=== PATIENT | female | born 1950 | race Caucasian/White ===

== ENCOUNTER → 2016-07-29 | Outpatient (CLI) | payer OTHER ==
[~2016-07-29] MED LIST: ALBU1AER9 INH; ATV/1 PO; CEPH500C PO; DOCU-94 PO; DXM/4 PO; GABA-113 PO; HYDR4TAB78 PO; IPRA1AER2 INH; IPRASOL4 INH; MORP15TA19 PO; MULTTAB58 PO; ONDA4TAB10 SL; OXGN; OXYC1CAP5 PO; PANT40TA PO; POLY335019 PO; TRAM-10 PO; VITA1CAP7 PO; VNTHFA/IN INH; ZOLP10TA6 PO
[2016-07-29 09:42] VITALS: BP 133/85; PULSE 93; TEMP 36.7; O2SAT 96
--- NOTE | 2016-07-29 13:30 | Radiation Oncology Follow-Up ---
Radiation Oncology Follow-Up Date of Visit Jul 29, 2016. 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 Nunez is a 65-year-old female who noted in the fall of this year increasing cough and bloody sputum with shortness of breath and right-sided chest pain. She saw her PCP who recommended she go to the emergency department to rule out a pulmonary embolus. In the emergency department a CT scan was performed which did not show any pulmonary embolus but did show a large right hilar mass measuring approximate 6 cm. Also noted was a right breast mass measuring 1.5 cm. The patient has a long smoking history of 1-1/2 packs per day for over 40 years. She was found to be hypoxic and was placed on oxygen. She was admitted and seen in referral by Dr. Markham. He recommended additional staging workup including a bronchoscopy for tissue diagnosis and PET/CT scan. On 04/02/2016 patient underwent a bronchoscopy with transbronchial needle aspiration and intrabronchial biopsy. The secondary soheila show diffuse erythema with widening. In the right upper lobe there was diffuse erythema and the anterior subsegment was partially obstructed down to 5 mm from the takeoff. The right mainstem bronchus was erythematous with hyperemia and 90% collapse with coughing. The right upper lobe biopsy revealed a small cell carcinoma. Case: [id number]. 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 Case: [id number]. Patient was seen by Dr. Rodo Argueta for discussion of the role of chemotherapy. He ordered an MRI of the brain performed on 04/22/2016. This showed no acute intracranial findings and no evidence of acute or subacute infarction or intracranial metastasis. In discussion of treatment options the patient stated that she did not wish to have any systemic chemotherapy. She also noted recent onset of right hip pain. Pelvic imaging taken on May 26 showed no fracture or dislocation of the pelvis hips or right femur. Lumbar spine imaging showed no acute fracture. There is moderate multilevel degenerative disc disease and facet arthrosis. There is moderate levoscoliosis of the lumbar spine but no evidence of metastatic disease. Right lower extremity venous Doppler showed no evidence of deep vein thrombosis. With the onset of right hip pain patient also noted increasing dyspnea. She was subsequently readmitted and underwent a CT of the chest to rule out pulmonary embolus. This again showed a large right hilar mass that had increased in size. It now measures 8.6 x 7.8 cm. The tumor invaded into the right side of the mediastinum and into the superior vena cava. There was near- complete occlusion of the SVC without any trace amount of contrast extending into the right atrium. 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 The majority of the venous drainage within the upper chest is through the distended azygos vein. The large right hilar mass resultant mass effect within the right pulmonary arteries. A questionable thrombus within the right upper lobe segmental pulmonary artery is likely due to artifact. No other filling defects are noted. There is mildly enlarged left hilar lymph node has increased in size. A 1.8 cm right breast mass also increased in size multiple subcentimeter bilateral metastatic nodules are again noted. A CT scan of the right hip and lower extremity was performed because of increasing pain on weightbearing. There were no fractures or dislocations identified. There was mild right-sided hydronephrosis and a 5.6 cm right adnexal cyst likely ovarian. There is distention of the bladder. Urinary contrast was noted within the vagina. There was no evidence of metastatic disease. I met with the patient to discuss palliative treatment options. The patient again reiterated that she did not wish to have any systemic chemotherapy. She was however willing to proceed with palliative radiation. I spoke with her about the use of radiation to the chest mass in the hopes of decreasing its volume and improving her respiratory symptoms. The patient understands that this is a palliative/not curative approach which she is willing to accept. I reviewed with her the potential risks and side effects of a palliative course of radiation to the chest. A consent form was presented to the patient. The risks were read to the patient and were initialed and the consent form was read signed and witnessed. With the patient's consent we will proceed with a CT simulation later today and begin a course of palliative radiation as soon as possible. She underwent palliative radiation therapy this was completed 06/26/2016. She received 5000 cGy Interim History She's been stable over the past month. Her respiratory status is unchanged. Her oxygen level continues to 4 L/m. She had been on dexamethasone 4 mg 4 times a day. Following hospitalization this was stopped. She become quite ill and weak following the quick discontinuation of steroids. She was seen by her PCP who promptly restarted the dexamethasone. She did feel improved with reinitiation of the medication. This has now been tapered down to 1 pill twice a day. She requested that the chest x-ray be reviewed from July 05. Outcome showed the hilar mass was unchanged. She also had a CT of the brain at that time and did not show metastatic disease. She had previously declined chemotherapy. We had previously discussed hospice care. She has seen her primary care physician and has also discussed hospice care with him. She feels that she may have some increased swelling of her neck and face and wanted to have her neck rechecked today. We had followed this at her on treatment visits with measurements throughout the treatment time. Which had showed an excellent response to treatment. Allergies Coded Allergies: Ciprofloxacin (Verified Allergy, Mild, RASH, 07/05/16) Latex (Verified Allergy, Unknown, ., 07/05/16) Uncoded Allergies: BLEACH (Allergy, Unknown, RASH, 04/02/16) METALS (Allergy, Unknown, RASH, 04/02/16) Home Medications Scheduled Dexamethasone (Decadron), 4 MG PO BID Docusate Sodium (Colace), 100 MG PO BID Gabapentin (Neurontin), 300 MG PO TIDM Morphine Cont Rel (Ms Contin), 15 MG PO Q12 Multiple Vitamin (Multivitamin), 1 TAB PO DAILY Ondasetron Odt (Zofran Odt), 4 MG SL Q6H Oxygen (Oxygen), 4 LITERS NA CONTINOUS Pantoprazole (Protonix), 40 MG PO DAILY Polyethylene Glycol 3350 (Miralax), 17 GM PO DAILY Vitamin E (E200), 2 CAP PO DAILY Scheduled PRN Albuterol (Proair Hfa), 2 PUFFS INH Q4 PRN for SOB/Wheezing Ipratropium-Albuterol (Duoneb), 1 TREATMENT INH Q6H PRN for Shortness of Breath Ipratropium-Albuterol (Combivent Respimat), 1 PUFFS INH QID PRN for Shortness of Breath Lorazepam (Ativan), 1 MG PO Q4 PRN for Anxiety Oxycodone Hcl (Oxycodone Hcl), 5 MG PO Q4 PRN for Pain Zolpidem Tartrate (Zolpidem Tartrate), 10 MG PO HS PRN for Sleep Review of Systems Gastrointestinal: Symptoms: WNL GI Comments: on myrlax daily Oral: Symptoms: Scant Saliva/Dry Mouth Respiratory: Symptoms: Moist Cough, SOB With Exertion Respiratory Comments: O 2 at 4.0 liters N C Other Respiratory: " does not use her nebulizers as directed " Urinary: Symptoms: Frausto Catheter Comments: "to have the frausto catheter changed today " Skin: Other Skin Symptoms: "dry " Physical Exam Vital Signs Date Time Temp Pulse Resp B/P Pulse Ox O2 Delivery O2 Flow Rate FiO2 07/29/16 09:42 36.7 93 20 133/85 96 Pain: Side: Bilateral Patient Pain Scale: 0 - 10 Initial Pain Intensity: 0.0 Fatigue: None General Appearance: no apparent distress, + pertinent finding (mild de souza face appearance.) Eyes: normal inspection, EOMI ENT: normal ENT inspection, hearing grossly normal, + pertinent finding (she has weight at she [place] on her tongue, posterior pharynx and buccal mucosa.) Neck: supple, no adenopathy, + pertinent finding (the neck circumference measured 14-1/2 inches.) Respiratory/Chest: lungs clear Cardiovascular: regular rate, rhythm, no gallop, no murmur Extremities: no pedal edema Neurologic/Psychiatric: no motor/sensory deficits, alert, normal mood/affect Skin: warm/dry Lymphatic: no adenopathy Laboratory Studies Test 05/26/16 18:35 05/26/16 18:58 05/26/16 22:34 05/26/16 23:20 Prothrombin Time 11.4 SECONDS (9.0-12.0) Prothrombin Time INR 1.1 (0.9-1.1) PTT 28.7 SECONDS (21.0-31.0) Partial Thromboplastin Ratio 1.1 Direct Bilirubin 0.1 mg/dl (0-0.2) Total Creatine Kinase 50 U/L (26-192) Creatine Kinase MB 1.6 ng/ml (0.5-3.6) Creatine Kinase MB Ratio 3.2 (0-3.0) Troponin I < 0.015 ng/ml (0-0.045) Lipase 299 U/L (73-393) Venous Blood pH 7.40 (7.36-7.41) Venous Blood Partial Pressure CO2 48 mmHg (38.0-50.0) Venous Blood Partial Pressure O2 56 mmHg Venous Blood HCO3 29 mmol/L Venous Blood Oxygen Saturation 89.4 % Venous Blood Base Excess 3.0 mmol/L Urine Renal Epithelial Cells /lpf (0-5) Urine Crystals CALCIUM OXALATE (NONE Arterial Blood pH 7.30 (7.35-7.45) Arterial Blood Partial Pressure CO2 55 mmHg (35-46) Arterial Blood Partial Pressure O2 92 mm/Hg (80-95) Arterial Blood HCO3 27 mmol/L (19-24) Arterial Blood Oxygen Saturation 96.3 % (90-95) Arterial Blood Base Excess -0.5 mEq/L (-9-1.8) Arterial Blood Gas Delivery 4L Francesco Test POS (POS) Test 05/28/16 06:46 07/01/16 18:50 07/01/16 19:00 07/01/16 20:15 CA 125 Antigen 44 U/ML (<35) Immature Granulocyte % (Auto) 1.1 % White Blood Count 8.91 K/uL (4.8-10.8) Red Blood Count 4.28 M/uL (4.2-5.4) Hemoglobin 13.6 g/dL (12.0-16.0) Hematocrit 39.0 % (37-47) Mean Corpuscular Volume 91.1 fL (80-100) Mean Corpuscular Hemoglobin 31.8 pg (25-34) Mean Corpuscular Hemoglobin Concent 34.9 g/dl (32-36) Platelet Count 210 K/uL (130-400) Mean Platelet Volume 9.6 fL (7.4-10.4) Neutrophils (%) (Auto) 89.9 % Lymphocytes (%) (Auto) 3.0 % Monocytes (%) (Auto) 4.7 % Eosinophils (%) (Auto) 1.2 % Basophils (%) (Auto) 0.1 % Neutrophils # (Auto) 8.00 K/uL (1.4-6.5) Lymphocytes # (Auto) 0.27 K/uL (1.2-3.4) Monocytes # (Auto) 0.42 K/uL (0.11-0.59) Eosinophils # (Auto) 0.11 K/uL (0-0.5) Basophils # (Auto) 0.01 K/uL (0-0.2) Immature Granulocyte # (Auto) 0.10 K/uL (0.00-0.02) Prothrombin Time 10.7 SECONDS (9.0-12.0) Prothrombin Time INR 1.0 (0.9-1.1) Magnesium Level 1.8 mg/dl (1.8-2.4) Total Bilirubin 0.5 mg/dl (0.2-1) Direct Bilirubin 0.1 mg/dl (0-0.2) Aspartate Amino Transferase (AST) 20 U/L (15-37) Alanine Aminotransferase (ALT) 28 U/L (12-78) Alkaline Phosphatase 83 U/L (45-117) Total Creatine Kinase 37 U/L (26-192) Creatine Kinase MB 2.2 ng/ml (0.5-3.6) Creatine Kinase MB Ratio 5.9 (0-3.0) Total Protein 6.3 gm/dl (6.4-8.2) Albumin 2.6 gm/dl (3.4-5.0) POC Troponin I 0.000 ng/ml (0-0.045) Urine Color YELLOW Urine Appearance CLOUDY (CLEAR) Urine pH 7.5 (4.5-7.5) Urine Specific [place] 1.015 (1.000-1.030) Urine Protein 1+ (NEG) Urine Glucose (UA) NEG (NEG) Urine Ketones NEG (NEG) Urine Occult Blood 2+ (NEG) Urine Nitrite NEG (NEG) Urine Bilirubin NEG (NEG) Urine Urobilinogen NEG (NEG) Urine Leukocyte Esterase MODERATE (NEG) Urine WBC (Auto) >30 /hpf (0-5) Urine RBC (Auto) 10-30 /hpf (0-4) Urine Hyaline Casts (Auto) 1-5 /lpf (0-5) Urine Epithelial Cells (Auto) 5-10 /lpf (0-5) Urine Bacteria (Auto) NEG (NEG) Urine Yeast (Auto) PRESENT (NONE PRSENT) Test 07/01/16 23:33 07/02/16 03:55 07/02/16 07:48 07/02/16 07:50 Osmolality 266 mOsm/kg (280-300) Magnesium Level 1.9 mg/dl (1.8-2.4) Urine Osmolality 480 mOms/kg (500-800) Urine Random Sodium 106 mEq/L Influenza Type A (RT-PCR) Neg for Influ A (NEG) Influenza Type B (RT-PCR) Neg for Influ B (NEG) Test 07/03/16 06:05 07/05/16 07:00 07/05/16 07:35 White Blood Count 7.72 K/uL (4.8-10.8) 8.05 K/uL (4.8-10.8) Red Blood Count 3.92 M/uL (4.2-5.4) 4.02 M/uL (4.2-5.4) Hemoglobin 11.9 g/dL (12.0-16.0) 12.7 g/dL (12.0-16.0) Hematocrit 36.2 % (37-47) 36.1 % (37-47) Mean Corpuscular Volume 92.3 fL (80-100) 89.8 fL (80-100) Mean Corpuscular Hemoglobin 30.4 pg (25-34) 31.6 pg (25-34) Mean Corpuscular Hemoglobin Concent 32.9 g/dl (32-36) 35.2 g/dl (32-36) RDW Standard Deviation 52.6 fL (36.4-46.3) 49.6 fL (36.4-46.3) RDW Coefficient of Variation 15.7 % (11.5-14.5) 15.1 % (11.5-14.5) Platelet Count 215 K/uL (130-400) 216 K/uL (130-400) Mean Platelet Volume 9.5 fL (7.4-10.4) 9.3 fL (7.4-10.4) Sodium Level 141 mmol/L (136-145) 132 mmol/L (136-145) Potassium Level 3.7 mmol/L (3.5-5.1) 3.7 mmol/L (3.5-5.1) Chloride Level 106 mmol/L (98-107) 94 mmol/L (98-107) Carbon Dioxide Level 27 mmol/L (21-32) 27 mmol/L (21-32) Anion Gap 8.0 mmol/L (3-11) 11.0 mmol/L (3-11) Blood Urea Nitrogen 10 mg/dl (7-18) 9 mg/dl (7-18) Creatinine 0.61 mg/dl (0.60-1.20) 0.45 mg/dl (0.60-1.20) Est Creatinine Clear Calc Drug Dose 83.7 ml/min 113.5 ml/min Estimated GFR () 108.7 120.2 Estimated GFR (Non- 93.8 103.7 BUN/Creatinine Ratio 16.4 (10-20) 20.4 (10-20) Random Glucose 109 mg/dl (70-99) 99 mg/dl (70-99) Calcium Level 8.3 mg/dl (8.5-10.1) 8.4 mg/dl (8.5-10.1) Neutrophils (%) (Auto) 91.6 % Lymphocytes (%) (Auto) 2.9 % Monocytes (%) (Auto) 4.0 % Eosinophils (%) (Auto) 0.9 % Basophils (%) (Auto) 0.1 % Neutrophils # (Auto) 7.38 K/uL (1.4-6.5) Lymphocytes # (Auto) 0.23 K/uL (1.2-3.4) Monocytes # (Auto) 0.32 K/uL (0.11-0.59) Eosinophils # (Auto) 0.07 K/uL (0-0.5) Basophils # (Auto) 0.01 K/uL (0-0.2) Immature Granulocyte % (Auto) 0.5 % Immature Granulocyte # (Auto) 0.04 K/uL (0.00-0.02) Total Bilirubin 0.6 mg/dl (0.2-1) Aspartate Amino Transferase (AST) 24 U/L (15-37) Alanine Aminotransferase (ALT) 24 U/L (12-78) Alkaline Phosphatase 86 U/L (45-117) Total Protein 6.1 gm/dl (6.4-8.2) Albumin 2.2 gm/dl (3.4-5.0) Globulin 3.9 gm/dl (2.5-4.0) Albumin/Globulin Ratio 0.6 (0.9-2) Urine Color YELLOW Urine Appearance CLEAR (CLEAR) Urine pH 7.0 (4.5-7.5) Urine Specific [place] 1.009 (1.000-1.030) Urine Protein NEG (NEG) Urine Glucose (UA) NEG (NEG) Urine Ketones NEG (NEG) Urine Occult Blood NEG (NEG) Urine Nitrite NEG (NEG) Urine Bilirubin NEG (NEG) Urine Urobilinogen NEG (NEG) Urine Leukocyte Esterase TRACE (NEG) Urine WBC (Auto) 1-5 /hpf (0-5) Urine RBC (Auto) 0-4 /hpf (0-4) Urine Hyaline Casts (Auto) 0 /lpf (0-5) Urine Epithelial Cells (Auto) 0-5 /lpf (0-5) Urine Bacteria (Auto) NEG (NEG) Additional Studies HEAD CT NONCONTRAST CT DOSE: 537.48 mGy.cm HISTORY: Change in mental status altered hx of lung ca TECHNIQUE: Multiaxial CT images of the head were performed without the use of intravenous contrast. Comparison: None. Findings: The paranasal sinuses and mastoid air cells are clear. The calvarium and skull base are intact. The ventricles and sulci are within normal limits. There is no mass, hematoma, midline shift, or acute infarct. Impression: No acute intracranial abnormality. Electronically signed by: Neftaly Patino M.D. 07/05/2016 7:52 AM CHEST ONE VIEW PORTABLE CLINICAL HISTORY: weakness hx of CA COMPARISON STUDY: 07/01/2016 FINDINGS: Chronic hilar fullness bilaterally. Prominent pulmonary vasculature. Diaphragms smooth. Calcifications are sharp. IMPRESSION: Hilar enlargement unchanged in the prior study. Chronic interstitial and bronchovascular prominence. No major change radiographically from the prior exam. Electronically signed by: Neftaly aPtino M.D. 07/05/2016 6:48 AM Assessment & Plan Plan: For the thrush she was prescribed Mycelex troches. She'll dissolve 1 on her tongue 5 times a day #35 are given and 3 refills. She continues on the tapered dose of dexamethasone. This is being followed by her PCP. We reviewed the chest x-ray results as well as the MRI of the brain. The neck circumference was discussed. 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 She had previously declined chemotherapy. She continues to decline further treatment and follow-up with medical oncology. She is planning to enter into hospice care. Her son was with her here today and he is in agreement with this plan of treatment. She is seeing her primary care physician next week and will be discussing the hospice care with him. He'll also continue discuss tapering the dexamethasone. Total Time In Follow-Up I spent 20 minutes speaking to the patient performing examination. I spent 15 minutes reviewing information in complaining this note. Copy To Neftaly Flood M.D.
== END | disposition home or self-care (01) ==
LOC: C.ONC 09:24
PROVIDERS: ATTEND Radiology Radiation Oncology
DX: Z08 Encounter for follow-up examination after completed treatment for malignant neoplasm (principal); Z92.3 Personal history of irradiation; Z85.118 Personal history of other malignant neoplasm of bronchus and lung

== ENCOUNTER 2016-08-20 10:45 | Emergency (ER) | payer OTHER ==
[~2016-08-20] VITALS: Ht 167.6 cm; Wt 65.0 kg
[~2016-08-20 10:45] MED LIST changes: -CEPH500C PO; -HYDR4TAB78 PO; -TRAM-10 PO; -VNTHFA/IN INH
[2016-08-20 10:57] VITALS: TEMP 36.8; Ht 167.6 cm; Wt 65.0 kg
[2016-08-20] MEDS ORDERED: OXYCODONE HCL IR 5 MG TAB (IMMEDIATE RELEASE) PO STA ×2 (11:20→12:42)
[2016-08-20] MEDS ORDERED: VNTHFA/IN INH (12:07)
[2016-08-20 12:19] LABS: URINE APPEARANCE TURBID (CLEAR); URINE BILIRUBIN NEG (NEG); URINE COLOR DK YELLOW; URINE EPITHELIAL CELL AUTO 20-30 /lpf (0-5); URINE NITRITE NEG (NEG); URINE PH >= 9.0 (4.5-7.5); URINE SPECIFIC GRAVITY 1.019 (1.000-1.030); UROBILINOGEN NEG (NEG)
[2016-08-20 12:33] LABS: MANUAL MICROSCOPIC REQUIRED? NO; REVIEW REQ? NO; SULFASALICYLIC ACID POS (NEG)
--- NOTE | 2016-08-20 12:59 | DIAGNOSTIC IMAGING REPORT ---
SINGLE VIEW PELVIS CLINICAL HISTORY: Fall with low back pain. FINDINGS: An AP pelvic radiograph is compared to study dated 05/26/2016. The skeletal structures are osteopenic. There is no radiographic evidence of fracture in the hips or pelvis. Minimal arthritic change is present in the hips. Sclerosis is noted in the sacroiliac joints. Lumbosacral spondylosis and scoliosis is partially visualized. Surgical clips are noted in the pelvis. There is a nonobstructed abdominal bowel gas pattern. IMPRESSION: Osteopenia and degenerative change as above. No acute bony abnormality is seen in the hips or pelvis. Electronically signed by: Oseas Todd M.D. 08/20/2016 12:58 PM Dictated Date/Time: 08/20/2016 12:56 PM
--- NOTE | 2016-08-20 13:09 | DIAGNOSTIC IMAGING REPORT ---
LUMBAR SPINE 5 VIEWS HISTORY: Pain Back pain COMPARISON: None. FINDINGS: There is no fracture. S-shaped rotational scoliosis. Compression deformity L3 and and L1 considerable. Degenerative disc changes throughout. IMPRESSION: Degenerative change. Several old compression deformities. Scoliosis. No acute process. Electronically signed by: Neftaly Patino M.D. 08/20/2016 1:07 PM Dictated Date/Time: 08/20/2016 1:06 PM
[2016-08-20] MEDS ORDERED: CEPH500C PO (14:13)
[2016-08-20] MEDS ORDERED: CEPHALEXIN MONOHYDRATE 250 MG CAP PO ONE (14:15)
[2016-08-20 15:00] VITALS: BP 150/88; PULSE 88; O2SAT 97
--- NOTE | 2016-08-20 18:19 | EMERGENCY ROOM VISIT NOTE ---
History Report prepared by Shalonda: Epi Aguilar Under the Supervision of: Dr. Ronak Ovalle M.D. First contact with patient: 11:08 Chief Complaint: CATHETER REPLACEMENT Stated Complaint: CATHETER HAS COME OUT History of Present Illness The patient is a 65 year old female with a history of right lung cancer who presents to the Emergency Room after acute catheter malfunction earlier this morning. The patient's catheter was functioning last night but not this morning. She noticed that the catheter came out when she checked it this morning. She has the catheter changed monthly. She isn't scheduled to have it changed for another couple weeks. The patient notes that her bladder currently feels full. The patient has the catheter in place for bladder dysfunction secondary to lung cancer. The patient's daughter notes that she has been falling recently. The patient has had low back soreness for several week since a fall. The patient takes Oxycodone for her chronic pain. The patient has numbness in all extremities, which is chronic. Patient denies LOC, headache, fevers, chills, diaphoresis, visual changes, neck pain, chest pain, breathing difficulties, nausea, vomiting, abdominal pain, melena, hematochezia, numbness, weakness, lymphadenopathy, rash, or other complaints. Source of History: patient Onset: this morning Position: other (urinary) Quality: other (catheter malfunction) Timing: other (acute) Associated Symptoms: + back pain Review of Systems See HPI for pertinent positives and negatives. A total of ten systems were reviewed and were otherwise negative. 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 (2) Respiratory failure, acute (3) Stage 4 lung cancer (4) Urinary obstruction Surgical Problems: (1) History of tubal ligation Family History No pertinent family history Social History Smoking Status: Former Smoker Alcohol Use: other Marital Status: single Housing Status: lives with family Occupation Status: retired Current/Historical Medications Scheduled Albuterol Hfa (Ventolin Hfa), 2-4 PUFFS INH Q6H Cephalexin Monohydrate (Keflex), 500 MG PO QID Dexamethasone (Decadron), 4 MG PO BID Docusate Sodium (Colace), 100 MG PO BID Gabapentin (Neurontin), 300 MG PO TIDM Morphine Cont Rel (Ms Contin), 15 MG PO Q12 Multiple Vitamin (Multivitamin), 1 TAB PO DAILY Ondasetron Odt (Zofran Odt), 4 MG SL Q6H Oxygen (Oxygen), 4 LITERS NA CONTINOUS Pantoprazole (Protonix), 40 MG PO DAILY Polyethylene Glycol 3350 (Miralax), 17 GM PO DAILY Vitamin E (E200), 2 CAP PO DAILY Scheduled PRN Ipratropium-Albuterol (Duoneb), 1 TREATMENT INH Q6H PRN for Shortness of Breath Ipratropium-Albuterol (Combivent Respimat), 1 PUFFS INH QID PRN for Shortness of Breath Lorazepam (Ativan), 1 MG PO Q4 PRN for Anxiety Oxycodone Hcl (Oxycodone Hcl), 5 MG PO Q4 PRN for Pain Zolpidem Tartrate (Zolpidem Tartrate), 10 MG PO HS PRN for Sleep Allergies Coded Allergies: Ciprofloxacin (Verified Allergy, Mild, RASH, 08/20/16) Latex (Verified Allergy, Unknown, ., 08/20/16) Uncoded Allergies: BLEACH (Allergy, Unknown, RASH, 04/02/16) METALS (Allergy, Unknown, RASH, 04/02/16) Physical Exam Vital Signs Date Time Temp Pulse Resp B/P Pulse Ox O2 Delivery O2 Flow Rate FiO2 08/20/16 15:00 88 20 150/88 97 08/20/16 13:43 95 18 134/96 97 Nasal Cannula 4.0 08/20/16 12:32 86 18 154/116 97 08/20/16 10:57 36.8 97 18 138/94 93 Nasal Cannula Physical Exam GENERAL: Awake, alert, uncomfortable-appearing, in no distress HENT: Normocephalic, atraumatic. Oropharynx unremarkable. EYES: Normal conjunctiva. Sclera non-icteric. NECK: Supple. No nuchal rigidity. FROM. No JVD. RESPIRATORY: Clear to auscultation. CARDIAC: Regular rate, normal rhythm. Extremities warm and well perfused. Pulses equal. ABDOMEN: Soft, non-distended. Mild tenderness in the suprapubic region. No rebound or guarding. No masses. RECTAL: Deferred. MUSCULOSKELETAL: Chest examination reveals no tenderness. The back is symmetrical on inspection without obvious abnormality There is mild tenderness over the lower left lumbar area. Left posterior pelvis bruising noted, extremities are otherwise atraumatic. There is no CVA tenderness to palpation. No joint edema. LOWER EXTREMITIES: Calves are equal size bilaterally and non-tender. No edema. No discoloration. NEURO: Normal sensorium. No sensory or motor deficits noted. SKIN: No rash or jaundice noted. Medical Decision & Procedures ER Provider Diagnostic Interpretation: X-ray: Per my interpretation, radiologist review. LUMBAR SPINE 5 VIEWS HISTORY: Pain Back pain COMPARISON: None. FINDINGS: There is no fracture. S-shaped rotational scoliosis. Compression deformity L3 and and L1 considerable. Degenerative disc changes throughout. IMPRESSION: Degenerative change. Several old compression deformities. Scoliosis. No acute process. Electronically signed by: Neftaly Patino M.D. 08/20/2016 1:07 PM Dictated Date/Time: 08/20/2016 1:06 PM SINGLE VIEW PELVIS CLINICAL HISTORY: Fall with low back pain. FINDINGS: An AP pelvic radiograph is compared to study dated 05/26/2016. The skeletal structures are osteopenic. There is no radiographic evidence of fracture in the hips or pelvis. Minimal arthritic change is present in the hips. Sclerosis is noted in the sacroiliac joints. Lumbosacral spondylosis and scoliosis is partially visualized. Surgical clips are noted in the pelvis. There is a nonobstructed abdominal bowel gas pattern. IMPRESSION: Osteopenia and degenerative change as above. No acute bony abnormality is seen in the hips or pelvis. Electronically signed by: Oseas Todd M.D. 08/20/2016 12:58 PM Dictated Date/Time: 08/20/2016 12:56 PM Laboratory Results Test 08/20/16 12:00 Urine Color DK YELLOW Urine Appearance TURBID (CLEAR) Urine pH >= 9.0 (4.5-7.5) Urine Specific [place] 1.019 (1.000-1.030) Urine Protein 1+ (NEG) Urine Glucose (UA) NEG (NEG) Urine Ketones NEG (NEG) Urine Occult Blood TRACE (NEG) Urine Nitrite NEG (NEG) Urine Bilirubin NEG (NEG) Urine Urobilinogen NEG (NEG) Urine Leukocyte Esterase LARGE (NEG) Urine WBC (Auto) >30 /hpf (0-5) Urine RBC (Auto) 0-4 /hpf (0-4) Urine Hyaline Casts (Auto) 5-10 /lpf (0-5) Urine Epithelial Cells (Auto) 20-30 /lpf (0-5) Urine Bacteria (Auto) 4+ (NEG) Laboratory results reviewed by me Medications Administered Medications (Trade) Dose Ordered Sig/Jinny Route Start Time Stop Time Status Last Admin Dose Admin Oxycodone HCl (Roxicodone Immediate Rel Tab) 5 mg NOW STAT PO 08/20/16 11:20 08/20/16 11:23 DC 08/20/16 11:30 5 MG Oxycodone HCl (Roxicodone Immediate Rel Tab) 5 mg NOW STAT PO 08/20/16 12:42 08/20/16 12:43 DC 08/20/16 13:52 5 MG Cephalexin Monohydrate (Keflex Cap) 500 mg NOW ONCE PO 08/20/16 14:15 08/20/16 14:16 DC 08/20/16 14:47 500 MG ED Course 1117: The patient was evaluated in room C6. A complete history and physical exam was performed. 1120: Oxycodone IR 5 mg PO. 1242: Oxycodone IR 5 mg PO. 1355: The patient is doing okay. I discussed the treatment plan. She verbalized understanding and agreement of the treatment plan. The patient is ready for discharge. 1415: Keflex 500 mg PO. Medical Decision The patient presented to the Emergency Room for a catheter malfunction. Her [place] catheter accidentally came out. The patient also noted a fall and bruising to the left posterior pelvis lower back. Differential includes catheter malfunction, UTI, contusion, fracture, soft tissue injury, as well as others were entertained. The patient was given OxyIR 5 mg 2. A [place] catheter was placed a urine sample was sent. X-ray imaging of the back and pelvis did not reveal any evidence of acute fracture. Old compression fractures and arthritic changes noted. The patient was able to ambulate. The patient appears to have a urinary tract infection and I discussed antibiotic treatment pending culture. The patient was recently on Bactrim and is allergic to ciprofloxacin. I will treat her with Keflex pending the results. The patient felt comfortable and has not had a problem with this and about in the past. Patient and daughter felt comfortable with this plan. Return instructions were outlined and the patient was discharged in stable condition. She is referred to her primary for follow-up. Impression Primary Impression: Complication of catheter Additional Impressions: UTI (urinary tract infection) Back pain Status post fall Scribe Attestation The scribe's documentation has been prepared under my direction and personally reviewed by me in its entirety. I confirm that the note above accurately reflects all work, treatment, procedures, and medical decision making performed by me. Departure Information Dispostion Home / Self-Care Prescriptions Cephalexin Monohydrate (Keflex) 500 Mg Cap 500 MG PO QID, #28 CAP Prov: Ronak Ovalle MD 08/20/16 Referrals Neftaly Flood M.D. (PCP) Forms HOME CARE DOCUMENTATION FORM, IMPORTANT VISIT INFORMATION Patient Instructions My [facility] Additional Instructions Cephalexin(Keflex) 500mg: Take one pill four times daily for 10 days for your skin infection. All antibiotics can cause diarrhea. If this occurs and you feel worse or it does not resolve in 1-2 days follow up with your doctor or return to the Emergency Department as this could be signs of serious underlying problems. Any medication can cause an allergic reaction, stop the pills immediately and return to the ER for rash, hives, breathing difficulties, or swelling. Rest and drink plenty of fluids. Continue current medications. Return to the ER immediately for worsening or persistent abdominal pain, vomiting, fevers, back or flank pain, worsening of your condition, or as needed. Follow up with your primary physician within 2-3 days for a recheck of the current condition. Care for the catheter as discussed. Do not pull on the catheter. Drain the bag frequently. Do not let it fill completely. Problem Qualifiers
--- NOTE | 2016-08-22 12:06 | Pharmacy Progress Note ---
ED Pharmacist Culture FollowUp Date of Service: Aug 22, 2016. Patient was sent home with a prescription for cephalexin, which should cover the Proteus growing from the patient's urine culture, based on sensitivity to cefazolin.
== END 2016-08-20 15:17 | disposition home or self-care (01) ==
LOC: C.EDB 10:47 → C.EDC 15:17
DX: T83.028A Displacement of other urinary catheter, initial encounter (principal); Y84.6 Urinary catheterization as the cause of abnormal reaction of the patient, or of later complication, without mention of misadventure at the time of the procedure; N39.0 Urinary tract infection, site not specified; M54.5 Low back pain; W19.XXXA Unspecified fall, initial encounter; C34.90 Malignant neoplasm of unspecified part of unspecified bronchus or lung; C79.81 Secondary malignant neoplasm of breast; J96.90 Respiratory failure, unspecified, unspecified whether with hypoxia or hypercapnia; N13.9 Obstructive and reflux uropathy, unspecified; Z87.891 Personal history of nicotine dependence; Z79.899 Other long term (current) drug therapy; Z99.81 Dependence on supplemental oxygen